=== PATIENT | male | born 1930 | race African-American/Black ===

== ENCOUNTER 2017-12-24 13:50 | Observation (INO) | payer OTHER ==
[2017-12-24 14:40] LABS: Absolute Lymphocytes (CBC) 1.2 K/uL (0.7-4.9); Absolute Monocytes 0.7 K/uL (0.1-1.3); Absolute Neutrophil 3.7 K/uL (1.8-8.0); Basophils % 0.8 % (0-1.3); Eosinophils % 4.6 % (0-4.4); Hematocrit 38.6 % (39.6-49.0); Lymphocytes % 20.8 % (15.3-44.8); MCH 31.9 pg (27.0-35.0); MCV 98.7 fL (80-100); MPV 8.4 fL (7.6-11.3); Monocytes % 11.1 % (3.3-12.3); RBC Red Blood Cell Count 3.91 M/uL (4.33-5.43)
--- NOTE | 2017-12-24 14:41 | RAD REPORT ---
EXAM DESCRIPTION: RAD - Chest Single View - 12/24/2017 2:33 pm CLINICAL HISTORY: CHEST PAIN Chest pain. COMPARISON: CHEST PA AND LAT 2 VIEW dated 02/01/2014; CHEST SINGLE VIEW dated 01/16/2014; CHEST PA AND LAT 2 VIEW dated 10/18/2012; CHEST SINGLE VIEW dated 06/01/2011 FINDINGS: Portable technique limits examination quality. The lungs are grossly clear. The heart is upper limit of normal in size. No displaced fractures. IMPRESSION: No acute intrathoracic process suspected.
[2017-12-24 14:57] LABS: CKMB Creatine Kinase MB 2.1 ng/mL (0.3-3.6); Potassium 3.3 mmol/L (3.5-5.1)
--- NOTE | 2017-12-24 15:23 | ER ---
Nurse's Notes [facility] Name: Clemente Nieto Age: 87 yrs Sex: Male : 1930 Arrival Date: 12/24/2017 Time: 13:51 Bed 6 Private MD: Andrei Bains T Diagnosis: Chest pain, unspecified Presentation: 12/24 13:52 Presenting complaint: Patient states: Left sided CP, that started yesterday, non sg radiating, described as sharp stabbing pain and pressure, denies N/V/D, denies weakness/dizziness at this time, pt denies SOB, reports this pain to be similar to his CP he had a couple years ago and was admitted. Transition of care: patient was not received from another setting of care. Onset of symptoms was December 24, 2017. Risk Assessment: Do you want to hurt yourself or someone else? Patient reports no desire to harm self or others. Initial Sepsis Screen: Does the patient meet any 2 criteria? No. Patient's initial sepsis screen is negative. Does the patient have a suspected source of infection? No. Patient's initial sepsis screen is negative. Care prior to arrival: None. 13:52 Method Of Arrival: Ambulatory sg 13:52 Acuity: JORGE 3 sg Historical: - Allergies: 13:52 No Known Allergies; sg - Home Meds: 13:52 carvedilol 6.25 mg Oral tab 1 tab 2 times per day [Active]; sg lisinopril-hydrochlorothiazide 10-12.5 mg Oral tab 1 tab once daily [Active]; simvastatin 20 mg Oral tab 1 tab once daily [Active]; 14:11 Nexium 40 mg Oral cpDR 1 cap once daily [Active]; Combivent 18-103 mcg/actuation Inhl hb aero [Active]; aspirin 325 mg Oral tab 1 tab once daily [Active]; nitroglycerin 0.4 mg SL subl [Active]; isosorbide mononitrate 30 mg Oral Tb24 1 tab once daily [Active]; - PMHx: 13:52 Hypertension; Stomach Ulcers; sg - PSHx: 13:52 None; sg - Immunization history:: Adult Immunizations up to date. - Social history:: Smoking status: Patient/guardian denies using tobacco. - Ebola Screening: : Patient negative for fever greater than or equal to 101.5 degrees Fahrenheit, and additional compatible Ebola Virus Disease symptoms Patient denies exposure to infectious person Patient denies travel to an Ebola-affected area in the 21 days before illness onset No symptoms or risks identified at this time. - Family history:: not pertinent. - Hospitalizations: : No recent hospitalization is reported. Screenin:09 Abuse screen: Denies threats or abuse. Denies injuries from another. Nutritional hb screening: No deficits noted. Tuberculosis screening: No symptoms or risk factors identified. Fall Risk None identified. Assessment: 14:12 General: Appears in no apparent distress. Behavior is calm, cooperative. Pain: Pain hb currently is 5 out of 10 on a pain scale. Neuro: Level of Consciousness is awake, alert, obeys commands, Oriented to person, place, time, situation. Cardiovascular: Reports chest pain, Heart tones S1 S2 present Capillary refill < 3 seconds Patient's skin is warm and dry. Respiratory: Airway is patent Trachea midline Respiratory effort is even, unlabored, Respiratory pattern is regular, symmetrical, Breath sounds are clear bilaterally. GI: No signs and/or symptoms were reported involving the gastrointestinal system. : No signs and/or symptoms were reported regarding the genitourinary system. EENT: No signs and/or symptoms were reported regarding the EENT system. Derm: No signs and/or symptoms reported regarding the dermatologic system. Skin is intact, is healthy with good turgor. Musculoskeletal: No signs and/or symptoms reported regarding the musculoskeletal system. Vital Signs: 14:01 BP 141 / 64; Pulse 47 MON; Resp 19 S; Temp 98.0(TE); Pulse Ox 100% on R/A; Weight 82.55 sg kg; Height 6 ft. 1 in. (185.42 cm); Pain 7/10; 14:55 BP 147 / 61; Pulse 48; Resp 18; Pulse Ox 100% on R/A; dh3 16:06 BP 122 / 73; Pulse 45; Resp 18; Pulse Ox 100% ; sv 14:01 Body Mass Index 24.01 (82.55 kg, 185.42 cm) ED Course: 13:51 Patient arrived in ED. sb2 13:51 Andrei Bains MD is Private Physician. sb2 13:52 Arm band placed on. sg 14:01 Deisy Hernández, MG is Primary Nurse. hb 14:01 Triage completed. sg 14:06 Shipman, Tio, MD is Attending Physician. rn 14:09 Inserted saline lock: 20 gauge in right antecubital area, using aseptic technique. hb Blood collected. 14:11 EKG done, by submarine cable equipment technician. reviewed by Tio Shipman MD. 3 14:27 EKG done, by submarine cable equipment technician. reviewed by Tio Shipman MD. 3 14:30 Patient has correct armband on for positive identification. Placed in gown. Bed in low hb position. Call light in reach. Side rails up X 1. 14:33 XRAY Chest (1 view) In Process Unspecified. EDMS 15:22 Chace Paris DO is Hospitalizing Provider. rn 16:30 No provider procedures requiring assistance completed. Patient admitted, IV remains in hb place. Administered Medications: No medications were administered Outcome: 15:22 Decision to Hospitalize by Provider. rn 16:30 Admitted to Med/surg accompanied by tech, via wheelchair, room 214. hb 16:30 Condition: stable 16:30 Instructed on the need for admit, Demonstrated understanding of instructions. 16:39 Patient left the ED. sv Signatures: Dispatcher [employer] EDMS Katja Helm RN MG Isaias Ramos RN RN Tio Shipman MD MD rn Baxter, Heather, RN RN Stacia Thompson 3 Caity Herrera 2 Carolina Echevarria 3
--- NOTE | 2017-12-24 15:23 | EDPHYS ---
Physician Documentation [facility] Name: Clemente Nieto Age: 87 yrs Sex: Male : 1930 Arrival Date: 12/24/2017 Time: 13:51 Bed 6 Private MD: Andrei Bains T ED Physician Tio Shipman HPI: 12/24 15:13 This 87 yrs old Black Male presents to ER via Ambulatory with complaints of Chest Pain rn > 30 y/o. 15:13 The patient or guardian reports chest pain that is located primarily in the anterior rn chest wall, left. Onset: last night. The pain radiates to the left arm. Associated signs and symptoms: The patient has no apparent associated signs or symptoms. The chest pain is described as aching, sharp. Duration: The patient or guardian reports multiple episodes, that are intermittent. Modifying factors: The symptoms are alleviated by NTG, X1. the symptoms are aggravated by nothing. Severity of pain: At its worst the pain was moderate in the emergency department the pain is unchanged. The patient has experienced similar episodes in the past. The patient has not recently seen a physician. Reports chest pain, intermittent since last night, radiates to left arm, improved with nitro x 1, similar symptoms in past with unclear etiology. States neg stress test a few years ago. No cough/sob. . Historical: - Allergies: 13:52 No Known Allergies; sg - Home Meds: 13:52 carvedilol 6.25 mg Oral tab 1 tab 2 times per day [Active]; sg lisinopril-hydrochlorothiazide 10-12.5 mg Oral tab 1 tab once daily [Active]; simvastatin 20 mg Oral tab 1 tab once daily [Active]; 14:11 Nexium 40 mg Oral cpDR 1 cap once daily [Active]; Combivent 18-103 mcg/actuation Inhl hb aero [Active]; aspirin 325 mg Oral tab 1 tab once daily [Active]; nitroglycerin 0.4 mg SL subl [Active]; isosorbide mononitrate 30 mg Oral Tb24 1 tab once daily [Active]; - PMHx: 13:52 Hypertension; Stomach Ulcers; sg - PSHx: 13:52 None; sg - Immunization history:: Adult Immunizations up to date. - Social history:: Smoking status: Patient/guardian denies using tobacco. - Ebola Screening: : Patient negative for fever greater than or equal to 101.5 degrees Fahrenheit, and additional compatible Ebola Virus Disease symptoms Patient denies exposure to infectious person Patient denies travel to an Ebola-affected area in the 21 days before illness onset No symptoms or risks identified at this time. - Family history:: not pertinent. - Hospitalizations: : No recent hospitalization is reported. ROS: 15:13 Constitutional: Negative for fever, chills, and weight loss, Eyes: Negative for injury, rn pain, redness, and discharge, Neck: Negative for injury, pain, and swelling, Cardiovascular: Negative for palpitations, and edema, Respiratory: Negative for shortness of breath, cough, wheezing, and pleuritic chest pain, Abdomen/GI: Negative for abdominal pain, nausea, vomiting, diarrhea, and constipation, MS/Extremity: Negative for injury and deformity, Skin: Negative for injury, rash, and discoloration, Neuro: Negative for headache, weakness, numbness, tingling, and seizure. Exam: 15:13 Constitutional: This is a well developed, well nourished patient who is awake, alert, rn and in no acute distress. Head/Face: Normocephalic, atraumatic. Eyes: Pupils equal round and reactive to light, extra-ocular motions intact. Lids and lashes normal. Conjunctiva and sclera are non-icteric and not injected. Cornea within normal limits. Periorbital areas with no swelling, redness, or edema. Neck: Trachea midline, no thyromegaly or masses palpated, and no cervical lymphadenopathy. Supple, full range of motion without nuchal rigidity, or vertebral point tenderness. No Meningismus. Cardiovascular: + regular, bradycardic, no murmur Respiratory: Lungs have equal breath sounds bilaterally, clear to auscultation and percussion. No rales, rhonchi or wheezes noted. No increased work of breathing, no retractions or nasal flaring. Abdomen/GI: Soft, non-tender, with normal bowel sounds. No distension or tympany. No guarding or rebound. No evidence of tenderness throughout. MS/ Extremity: Pulses equal, no cyanosis. Neurovascular intact. Full, normal range of motion. Equal circumference. Neuro: Awake and alert, GCS 15, oriented to person, place, time, and situation. Cranial nerves II-XII grossly intact. Motor strength 5/5 in all extremities. Sensory grossly intact. Vital Signs: 14:01 BP 141 / 64; Pulse 47 MON; Resp 19 S; Temp 98.0(TE); Pulse Ox 100% on R/A; Weight 82.55 sg kg; Height 6 ft. 1 in. (185.42 cm); Pain 7/10; 14:55 BP 147 / 61; Pulse 48; Resp 18; Pulse Ox 100% on R/A; dh3 16:06 BP 122 / 73; Pulse 45; Resp 18; Pulse Ox 100% ; sv 14:01 Body Mass Index 24.01 (82.55 kg, 185.42 cm) sg MDM: 14:06 Patient medically screened. rn 14:31 ED course: ST elevation on ECG, only in lead V2, appears more j-point elevation, has rn inverted twaves inferior leads, chest pain almost resolved, pending troponin, anticipate admission for chest pain and ECG changes but not enough to call STEMI at this point. . 15:19 Differential diagnosis: acute myocardial infarction, acute pericarditis, anxiety, rn coronary artery disease costochondritis, gastroesophageal reflux disease (GERD), pericarditis, pleurisy, pneumothorax. The patient was given aspirin in the Emergency Department. 15:20 Data reviewed: vital signs, nurses notes, lab test result(s), EKG, radiologic studies, rn plain films, and as a result, I will admit patient. Counseling: I had a detailed discussion with the patient and/or guardian regarding: the historical points, exam findings, and any diagnostic results supporting the discharge/admit diagnosis, lab results, radiology results, the need for further work-up and treatment in the hospital. Response to treatment: the patient's symptoms have mildly improved after treatment, and as a result, I will admit patient. Admission orders: after a detailed discussion of the patient's condition and case, the admit orders are written by me. 12/24 14:14 Order name: Basic Metabolic Panel; Complete Time: 14:57 rn 12/24 14:14 Order name: CBC with Diff; Complete Time: 14:43 rn 12/24 14:14 Order name: Ckmb; Complete Time: 14:57 rn 12/24 14:14 Order name: CPK; Complete Time: 14:57 rn 12/24 14:14 Order name: NT PRO-BNP; Complete Time: 14:57 rn 12/24 14:14 Order name: Troponin (emerg Dept Use Only); Complete Time: 14:57 rn 12/24 15:44 Order name: Urinalysis EDMS 12/24 15:44 Order name: Basic Metabolic Panel EDMS 12/24 15:44 Order name: Basic Metabolic Panel EDMS 12/24 15:44 Order name: Basic Metabolic Panel EDMS 12/24 15:44 Order name: CBC with Automated Diff EDMS 12/24 15:44 Order name: CBC with Automated Diff EDMS 12/24 15:44 Order name: CBC with Automated Diff EDMS 12/24 15:44 Order name: CKMB Creatine Kinase MB EDMS 12/24 15:44 Order name: CKMB Creatine Kinase MB EDMS 12/24 15:44 Order name: CKMB Creatine Kinase MB EDMS 12/24 15:44 Order name: Creatine Phosphokinase EDMS 12/24 15:44 Order name: Creatine Phosphokinase EDMS 12/24 15:44 Order name: Creatine Phosphokinase EDDE 12/24 15:44 Order name: Lipid Profile EDMS 12/24 15:44 Order name: Lipid Profile EDMS 12/24 15:44 Order name: Magnesium EDMS 12/24 15:44 Order name: Magnesium EDMS 12/24 15:44 Order name: Magnesium EDMS 12/24 15:44 Order name: T4 Free EDMS 12/24 15:44 Order name: T4 Free EDDE 12/24 15:44 Order name: Troponin I EDDE 12/24 15:44 Order name: Troponin I EDDE 12/24 15:44 Order name: Troponin I EDDE 12/24 15:44 Order name: Thyroid Stimulating Hormone EDDE 12/24 14:14 Order name: XRAY Chest (1 view); Complete Time: 14:43 rn 12/24 14:14 Order name: EKG; Complete Time: 14:15 rn 12/24 14:14 Order name: Cardiac monitoring; Complete Time: 14:23 rn 12/24 14:14 Order name: EKG - Nurse/Tech; Complete Time: 14:23 rn 12/24 14:14 Order name: IV Saline Lock; Complete Time: 14:23 rn 12/24 14:14 Order name: Labs collected and sent; Complete Time: 14:23 rn 12/24 14:14 Order name: O2 Per Protocol; Complete Time: 14:23 rn 12/24 14:14 Order name: O2 Sat Monitoring; Complete Time: 14:23 rn 12/24 15:44 Order name: CONS Physician Consult EDDE 12/24 15:44 Order name: Heart Healthy EDMS 12/24 15:44 Order name: Echo with Doppler EDMS 12/24 15:44 Order name: Thyroid Stimulating Hormone EDMS Administered Medications: No medications were administered Disposition: 12/24/17 15:22 Hospitalization ordered by Chace Paris for Observation. Preliminary diagnosis is Chest pain, unspecified. - Bed requested for Telemetry/MedSurg (observation). - Status is Observation. sv - Condition is Stable. - Problem is new. - Symptoms have improved. UTI on Admission? No Signatures: Dispatcher [employer] EDDE Katja Helm RN Isaias Tena RN Tio Araujo MD MD rn Baxter, Heather RN Genesis Aviles RN RN df Corrections: (The following items were deleted from the chart) 14:33 14:31 ED course: ST elevation on ECG, only in lead V2, appears more j-point elevation, rn has inverted twaves inferior leads. rn 16:09 15:22 Hospitalization Ordered by Chace Paris DO for Observation. Preliminary df diagnosis is Chest pain, unspecified. Bed requested for Telemetry/MedSurg (observation). Status is Observation. Condition is Stable. Problem is new. Symptoms have improved. UTI on Admission? No. rn 16:39 16:09 12/24/2017 15:22 Hospitalization Ordered by Chace Paris DO for Observation. sv Preliminary diagnosis is Chest pain, unspecified. Bed requested for Telemetry/MedSurg (observation). Status is Observation. Condition is Stable. Problem is new. Symptoms have improved. UTI on Admission? No. df
[2017-12-24] MEDS ORDERED: ACETAMINOPHEN 500 MG TAB PO PRN (15:38)
[2017-12-24] MEDS ORDERED: ONDANSETRON 4 MG/2 ML VIAL IV PRN (15:38)
[2017-12-24] MEDS ORDERED: MORPHINE 4 MG/ML SYR IV PRN (15:38)
--- NOTE | 2017-12-24 15:49 | P.HP ---
Certification for Inpatient Patient admitted to: Observation With expected LOS: <2 Midnights Patient will require the following post-hospital care: None Practitioner: I am a practitioner with admitting privileges, knowledge of patient current condition, hospital course, and medical plan of care. Services: Services provided to patient in accordance with Admission requirements found in Title 42 Section 412.3 of the Code of Federal Regulations Patient History Date of Service: 12/24/17 Primary Care Provider: Dr. Bains; Cardiology-Dr. Medina([place], [place]) Reason for admission: Chest pain History of Present Illness: 87-year-old male presented emergency room with chest pain. Patient reports chest pain since yesterday. Chest pain mainly to the left side. No radiation was noted. He rated the pain about a 5/10. It was associated with some shortness of breath. He denied any headaches, nausea, or diaphoresis. Chest pain persisted today. He came to the emergency room for further evaluation. In the ER patient was evaluated. Blood pressure is slightly elevated. CBC unremarkable. Potassium slightly decreased at 3.3. CK-MB, troponin, BMP all within normal range. Chest x-ray unremarkable. No significant ST elevation noted. Due to the nature of the symptoms the patient was admitted for observation. When I saw the patient ER, he appeared comfortable. Chest pain improved. Patient was given nitroglycerin in the emergency room. 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 His last stress test was about 2 years ago. He recalled it being normal. Patient with history of hypertension, hyperlipidemia, and GERD. Patient takes multiple medications. Allergies No Known Allergies Allergy (Unverified 01/16/14 16:11) Home medications list reviewed: Yes Home Medications: Amlodipine [Norvasc*] 1 tab PO DAILY 01/16/14 Carvedilol [Coreg] 1 tab PO BID 01/16/14 Combivent Inhaler 1 puff IH DAILY 01/16/14 Esomeprazole Mag Trihydrate [Nexium] 1 tab PO DAILY 01/16/14 Lisinopril/Hydrochlorothiazide [Zestoretic 10-12.5 mg Tablet] 1 tab PO DAILY Simvastatin 1 tab PO BEDTIME 01/16/14 - Past Medical/Surgical History Diabetic: No -: HTN -: Hyperlipidemia -: GERD -: COPD -: CAD -: Former tobacco use Past Surgical History: Patient denies surgical history Psychosocial/ Personal History: The patient is a . He has 2 children. He lives by himself but his children take care of him. - Family History Family History: Reviewed- Non-Contributory - Social History Smoking Status: Former smoker Alcohol use: No CD- Drugs: No Caffeine use: Yes Place of Residence: Home Review of Systems General: Unremarkable Eyes: Unremarkable ENT: Unremarkable Respiratory: Shortness of Breath, As per HPI Cardiovascular: Chest Pain, As per HPI Gastrointestinal: Unremarkable Genitourinary: Unremarkable Musculoskeletal: Unremarkable Integumentary: Unremarkable Neurological: Unremarkable Lymphatics: Unremarkable Physical Examination - Physical Exam General: Alert, In no apparent distress, Oriented x3, Cooperative HEENT: Atraumatic, Normocephalic, PERRLA, Mucous membr. moist/pink Neck: Supple, No Thyromegaly Respiratory: Clear to auscultation bilaterally, Normal air movement Cardiovascular: Normal pulses, Regular rate/rhythm Gastrointestinal: Normal bowel sounds, Soft and benign, Non-distended, No ascites, No tenderness, No masses, No rebound, No guarding Musculoskeletal: No contractures, No erythema, No tenderness, No warmth Integumentary: No tenderness/swelling, No erythema, No warmth, No cyanosis Neurological: Normal speech, Normal strength at 5/5 x4 extr, Normal tone, Normal affect Lymphatics: No axilla or inguinal lymphadenopathy - Studies Laboratory Data (last 24 hrs) 12/24/17 14:06: WBC 5.9, Hgb 12.5 L, Hct 38.6 L, Plt Count 177 12/24/17 14:06: Sodium 144, Potassium 3.3 L, BUN 11, Creatinine 1.20, Glucose 67 L Assessment and Plan - Problems (Diagnosis) (1) Hypertension Current Visit: Yes Status: Chronic Plan: Will continue with carvedilol. Will discontinue lisinopril hydrochlorothiazide due to hypokalemia. Will start with lisinopril only. Will monitor and adjust medications appropriately. Patient admitted for observation. Will check echocardiogram. Will monitor cardiac enzymes. Cardiology consulted to further assess. Qualifiers: Hypertension type: essential hypertension Qualified Code(s): I10 - Essential (primary) hypertension (2) Hyperlipidemia Current Visit: Yes Status: Chronic Plan: Will check fasting lipid panel. Will continue with statin medication. (3) GERD (gastroesophageal reflux disease) Current Visit: Yes Status: Chronic Plan: Will start PPI. Qualifiers: Esophagitis presence: esophagitis presence not specified Qualified Code(s) : K21.9 - Gastro-esophageal reflux disease without esophagitis (4) CAD (coronary artery disease) Current Visit: Yes Status: Chronic Plan: Patient takes Imdur. Will restart. Will continue evaluation or chest pain. He reports last stress test done 2 years ago with his set up mechanic stamping machines. He recalls it being normal. Echocardiogram pending. Cardiology consulted. Qualifiers: Coronary Disease-Associated Artery/Lesion type: unspecified vessel or lesion type Associated angina: with unstable angina (5) Hypokalemia Current Visit: Yes Status: Acute Plan: Will monitor and replace appropriately. Replacement protocol in place. (6) Chest pain Current Visit: No Status: Acute Plan: Will monitor cardiac enzymes. Will place on aspirin, Lovenox for DVT prophylaxis, statin medication. Will provide medication for chest pain. Will order echocardiogram. His last stress tests done 2 years ago which was normal. Will consult cardiology. Qualifiers: Ischemic chest pain type: unstable angina pectoris Discharge Plan: Home Plan to discharge in: 24 Hours - Advance Directives Does patient have a Living Will: Yes Does patient have a Durable POA for Healthcare: No - Code Status/Comfort Care Code Status Assessed: Yes Time Spent Managing Pts Care (In Minutes): 55
[2017-12-24] MEDS ORDERED: NITROGLYCERIN 0.4 MG/TAB SL PRN (16:04)
--- NOTE | 2017-12-24 17:24 | EKG ---
Test Date: 2017-12-24 Test Time: 14:04:31 Pensions Ret[employer] Plan Specialist: BRADLEY MEASUREMENT RESULTS: Intervals: Rate: 46 NM: 152 QRSD: 94 QT: 488 QTc: 427 Union: P: 62 NM: 152 QRS: -20 T: -29 INTERPRETIVE STATEMENTS: Marked sinus bradycardia Early repolarization abnormality Abnormal ECG Compared to ECG 01/17/2014 07:18:05 no significant change from previous ECG Electronically Signed On 12-24-17 17:24:10 CDT by Kamron Sousa
[2017-12-24] MEDS ORDERED: IPRATROPIUM BROM 0.5MG/2.5ML NEB PRN (17:26)
[2017-12-24] MEDS ORDERED: ALBUTEROL 2.5 MG/3 ML NEB SOL NEB PRN (17:26)
[2017-12-24] MEDS: PANTOPRAZOLE 40MG TABLET PO SCH (17:48)
[2017-12-24] MEDS: ENOXAPARIN 40 MG/0.4 ML SQ SCH (17:48)
[2017-12-24 18:59] VITALS: BMI 24.0
[2017-12-24] MEDS ORDERED: POTASSIUM 25 MEQ EFFERV TAB PO ONE (19:00)
[2017-12-24 20:46] LABS: Urine Appearance CLEAR; Urine Bilirubin NEGATIVE (NEG); Urine Blood NEGATIVE (NEG); Urine Color DK YELLOW; Urine Glucose NEGATIVE (NEG); Urine Protein 1+ (NEG); Urine Specific Gravity >=1.030 (1.005-1.030)
[2017-12-24 20:51] LABS: Urine Microscopic Reflex ORDER UMIC
[2017-12-24] MEDS ORDERED: ATORVASTATIN 10 MG TAB PO SCH (21:00)
[2017-12-24] MEDS ORDERED: LISINOPRIL 10 MG TAB PO SCH (21:00)
[2017-12-24 21:22] LABS: Calcium Oxalate Crystals- Ur MODERATE (NONE SEEN); Urine Bacteria <20 /HPF (NONE SEEN); Urine Culture Reflex Order NOT NEEDED; Urine Mucus SLIGHT /HPF (NONE SEEN); Urine RBC <5 /HPF (NONE SEEN)
[2017-12-24] MEDS: CARVEDILOL 6.25 MG TAB PO SCH (21:30)
--- NOTE | 2017-12-24 22:45 | CON ---
Chief Complaint: Pain in the chest and left shoulder area. History Of Present Illness: Mr. Nieto has had chest pain like this for several years. Four years ago he was hospitalized for similar complaint. Then a nuclear stress test and echo were normal. Reg etime in the past 4 year, Dr. Medina put a stent in him, but apparently it made a little difference in the chest pain. His chest pain is intermittent. There are some days when it is worse, some days wh en it is better, does not seem to be related to exertion. It is intermittent, not related to meals, mostly left shoulder, sometimes enter the chest, sometimes the left arm. The patient has hypertensio n and dyslipidemia. He does not have diabetes. He does not use tobacco. No illegal drugs. Physical Examination: Vital Signs: 6 feet 1 inch tall, 182 pounds. HEENT: Normal. Lungs: Clear. Heart: Exam is within normal limits. There is no carotid bruit. Abdomen: Soft, aortic size seems to be normal on palpation. Extremities: No cyanosis, clubbing, or edema. Distal pulses are palpable. An EKG does not show infarction, injury, or ischemia. Cardiac enzymes are normal. His other blood tests are rather unremarkable. There is mild anemia, hemoglobin 12.5, normal platele t count and white blood cell count, creatinine 1.2, GFR 70, N-terminal proBNP is 280, which is within normal limits. Plan: I think if we have a 3 sets of normal enzymes, the patient probably could be allowed to go, an d do an outpatient stress test again or return to the care of Dr. Medina. We can keep him as long as Dr. Paris wishes to workup other noncardiac causes of chest pain, but I think this is noncardiac. H carmen does not have an elevated temperature. Some of his family members were concerned that he might hav e gotten heat stroke, but he does not have an elevated temperature, so that seems unlikely. His hear t rate is rather slow, bradycardic, and I do not think he would meet criteria for a pacemaker at [facility] at this point. Thank you very much for your kind referral of Mr. Nieto. I will follow him with you. MARIELA/BOYL Voice ID: [id number] Report ID: [id number]
--- NOTE | 2017-12-24 23:01 | EKG ---
Test Date: 2017-12-24 Test Time: 14:19:07 Typesetting Machine Operator/Tender: BRADLEY MEASUREMENT RESULTS: Intervals: Rate: 45 UT: 150 QRSD: 92 QT: 488 QTc: 422 [place]: P: 74 UT: 150 QRS: -19 T: -37 INTERPRETIVE STATEMENTS: Sinus bradycardia Early repolarization Abnormal ECG Compared to ECG 12/24/2017 14:04:31 no significant change from previous ECG Electronically Signed On 12-24-17 23:01:31 CDT by Kamron Sousa
--- NOTE | 2017-12-24 23:01 | EKG ---
Test Date: 2017-12-24 Test Time: 14:19:37 Systems Analyst: BRADLEY MEASUREMENT RESULTS: Intervals: Rate: 47 GA: 146 QRSD: 92 QT: 484 QTc: 428 [place]: P: 68 GA: 146 QRS: -23 T: -38 INTERPRETIVE STATEMENTS: Sinus bradycardia Early repolarization Abnormal ECG Compared to ECG 12/24/2017 14:19:07 No significant changes Electronically Signed On 12-24-17 23:00:58 CDT by Kamron Sousa
[2017-12-25 00:45] LABS: CKMB Creatine Kinase MB 1.9 ng/mL (0.3-3.6)
[2017-12-25] MEDS ORDERED: POTASSIUM CL SA 10 MEQ TAB PO ONE ×2 (00:56→06:06)
[2017-12-25 05:10] VITALS: O2SAT 97
[2017-12-25 05:26] LABS: Absolute Lymphocytes (CBC) 1.1 K/uL (0.7-4.9); Absolute Monocytes 0.5 K/uL (0.1-1.3); Absolute Neutrophil 2.6 K/uL (1.8-8.0); Basophils % 0.5 % (0-1.3); Eosinophils % 6.2 % (0-4.4); Hematocrit 35.3 % (39.6-49.0); Lymphocytes % 24.9 % (15.3-44.8); MCH 33.8 pg (27.0-35.0); MCV 97.2 fL (80-100); MPV 8.2 fL (7.6-11.3); Monocytes % 10.5 % (3.3-12.3); RBC Red Blood Cell Count 3.63 M/uL (4.33-5.43)
[2017-12-25 05:53] LABS: Magnesium 1.8 mg/dL (1.8-2.4); Potassium 3.8 mmol/L (3.5-5.1); Thyroid Stimulating Hormone 1.82 uIU/mL (0.36-3.74)
[2017-12-25] MEDS ORDERED: MAGNESIUM SULFATE 1 gm IVPB 1 GM/100 ML BAG IV ONE (06:05)
[2017-12-25 07:51] LABS: CKMB Creatine Kinase MB 1.6 ng/mL (0.3-3.6)
[2017-12-25] MEDS: CARVEDILOL 6.25 MG TAB PO SCH (08:39)
[2017-12-25] MEDS: ENOXAPARIN 40 MG/0.4 ML SQ SCH (08:39)
[2017-12-25] MEDS: PANTOPRAZOLE 40MG TABLET PO SCH (08:39)
[2017-12-25] MEDS ORDERED: ASPIRIN EC 81 MG TAB PO SCH (09:00)
[2017-12-25] MEDS ORDERED: ISOSORBIDE MONO SR 30 MG TAB PO SCH (09:00)
--- NOTE | 2017-12-25 10:18 | P.DS ---
Admission Date: 12/24/17 Discharge Date: 12/25/17 Primary Care Provider: Dr. Bains; Cardiology-Dr. Medina([place], [place]) Disposition: ROUTINE DISCHARGE Discharge Condition: GOOD Reason for Admission: Chest pain Consultations: Cardiology-Dr. Sousa - Problems (1) Hypertension Current Visit: Yes Status: Chronic Qualifiers: Hypertension type: essential hypertension Qualified Code(s): I10 - Essential (primary) hypertension (2) Hyperlipidemia Current Visit: Yes Status: Chronic (3) GERD (gastroesophageal reflux disease) Current Visit: Yes Status: Chronic Qualifiers: Esophagitis presence: esophagitis presence not specified Qualified Code(s) : K21.9 - Gastro-esophageal reflux disease without esophagitis (4) CAD (coronary artery disease) Current Visit: Yes Status: Chronic Qualifiers: Coronary Disease-Associated Artery/Lesion type: unspecified vessel or lesion type Associated angina: with unstable angina (5) Hypokalemia Current Visit: Yes Status: Acute (6) Chest pain Current Visit: No Status: Acute Qualifiers: Ischemic chest pain type: unstable angina pectoris Brief History of Present Illness: 87-year-old male presented emergency room with chest pain. Patient reports chest pain since yesterday. Chest pain mainly to the left side. No radiation was noted. He rated the pain about a 5/10. It was associated with some shortness of breath. He denied any headaches, nausea, or diaphoresis. Chest pain persisted today. He came to the emergency room for further evaluation. In the ER patient was evaluated. Blood pressure is slightly elevated. CBC unremarkable. Potassium slightly decreased at 3.3. CK-MB, troponin, BMP all within normal range. Chest x-ray unremarkable. No significant ST elevation noted. Due to the nature of the symptoms the patient was admitted for observation. When I saw the patient ER, he appeared comfortable. Chest pain improved. Patient was given nitroglycerin in the emergency room. 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 His last stress test was about 2 years ago. He recalled it being normal. Patient with history of hypertension, hyperlipidemia, and GERD. Patient takes multiple medications. Hospital Course: The patient did well during the course of his stay. Chest pain resolved. Patient was evaluated by cardiology. Cardiology suspects noncardiac chest pain. Cardiac enzymes unremarkable. Patient will be discharged home. Recommendation is for the patient to follow up with cardiology within 1 week as an outpatient. Patient may require outpatient cardiac evaluation. Patient may continue with his current medications. Patient to continue with aspirin 325 mg daily. Patient has hypertension. Patient will continue with his medications including carvedilol 3.125 mg 1 pill twice daily and lisinopril 10 mg 1 pill once daily. Recommendation is to maintain blood pressures less 150/80. Further adjustment can be done by his PCP. Patient has hyperlipidemia. Patient continue with Zocor 20 mg once daily. Patient takes Imdur daily. Patient will continue with his medication. Patient will need a follow up with cardiology in outpatient to further address. Patient takes Combivent as needed. Patient with history of tobacco use in the past. Recommendation is to use Combivent as needed. If he is using Combivent more regularly the patient may require pulmonary evaluation for the possible need of Advair or Symbicort. This can be further addressed as an outpatient. Vital Signs/Physical Exam: Temp Pulse Resp BP Pulse Ox 97.3 F 50 20 161/73 H 99 12/25/17 08:00 12/25/17 08:00 12/25/17 08:00 12/25/17 08:00 12/25/17 08:00 General: Alert, In no apparent distress, Oriented x3, Cooperative HEENT: Atraumatic, Mucous membr. moist/pink Neck: Supple Respiratory: Clear to auscultation bilaterally, Normal air movement Cardiovascular: Normal pulses, Regular rate/rhythm Gastrointestinal: Normal bowel sounds, Soft and benign, Non-distended, No tenderness, No masses, No rebound, No guarding Musculoskeletal: No erythema, No tenderness, No warmth Integumentary: No tenderness/swelling, No erythema, No warmth, No cyanosis Neurological: Normal speech, Normal strength at 5/5 x4 extr, Normal tone, Normal affect Lymphatics: No axilla or inguinal lymphadenopathy Laboratory Data at Discharge: WBC 4.5 K/uL (4.3-10.9) D 12/25/17 04:52 Hgb 12.3 g/dL (13.6-17.9) L 12/25/17 04:52 Hct 35.3 % (39.6-49.0) L 12/25/17 04:52 Plt Count 152 K/uL (152-406) 12/25/17 04:52 Sodium 144 mmol/L (136-145) 12/25/17 04:52 Potassium 3.8 mmol/L (3.5-5.1) 12/25/17 04:52 BUN 11 mg/dL (7-18) 12/25/17 04:52 Creatinine 1.10 mg/dL (0.55-1.3) 12/25/17 04:52 Glucose 97 mg/dL (74-106) 12/25/17 04:52 Magnesium 1.8 mg/dL (1.8-2.4) 12/25/17 04:52 Troponin I < 0.02 ng/mL (0.0-0.045) 12/25/17 07:07 Triglycerides 124 mg/dL (<150) 12/25/17 04:52 Cholesterol 101 mg/dL (<200) 12/25/17 04:52 HDL Cholesterol 35 mg/dL (40-60) L 12/25/17 04:52 Cholesterol/HDL Ratio 2.89 12/25/17 04:52 Home Medications: Carvedilol [Coreg] 1 tab PO BID 01/16/14 Combivent Inhaler 2 puff IH DAILY 01/16/14 Esomeprazole Mag Trihydrate [Nexium] 1 tab PO DAILY 01/16/14 Simvastatin 1 tab PO BEDTIME 01/16/14 Aspirin [Aspirin EC 325 MG] 325 mg PO 12/24/17 Isosorbide Mononitrate [Isosorbide Mononitrate ER] 1 tab PO DAILY 12/24/17 Nitroglycerin 0.4 mg SL Q5MX3, Q15MX1, Q30M PRN 12/24/17 Patient Discharge Instructions: 1. Patient will need a follow up with PCP in 1 week to follow up this hospitalization. 2. Patient presented with chest pain. This resolved. Patient seen by Cardiology. Cardiology suspects this is noncardiac. Cardiac enzymes x3 negative. Recommendations for the patient follow up with his social and human services assistant within 1 week. Patient may require outpatient cardiac evaluation. Patient may continue with aspirin daily. Patient takes Imdur. This can be continued. 3. Patient has hypertension. This remained stable. Patient will continue with his medications carvedilol 3.125 mg 1 pill twice daily and lisinopril 10 mg 1 pill once daily. Recommendation is to maintain blood pressures less 150/80. Further adjustment can be done by his PCP. 4. Patient has hyperlipidemia. Patient will continue with Zocor 20 mg 1 pill once daily. 5. Patient may take Tylenol as needed for pain. Diet: AHA Activity: Ad shadi Time spent managing pt's care (in minutes): 55
--- NOTE | 2017-12-25 13:52 | PN ---
Mr. Nieto is free of any chest pain. Enzymes are normal. EKG abnormal, but consistent with early repolarization. He is not an acute coronary syndrome patient. I recommend he be discharged and foll ow up with Dr. Medina. MARIELA/FRANKLIN Voice ID: [id number] Report ID: [id number]
[2017-12-25 16:27] VITALS: BP 154/71; TEMP 97.7
[2017-12-25] MEDS ORDERED: LISINOPRIL 20 MG TAB PO SCH (21:00)
== END 2017-12-25 16:08 | disposition home or self-care (01) ==
LOC: ER 13:50 → ERHOLD 15:38 → INTOOBSV 15:38 → 2ND 16:31
PROVIDERS: ADMIT Family Medicine; ATTEND Family Medicine
DX: R07.9 Chest pain, unspecified (principal); I25.110 Atherosclerotic heart disease of native coronary artery with unstable angina pectoris; R00.1 Bradycardia, unspecified; I10 Essential (primary) hypertension; E78.5 Hyperlipidemia, unspecified; K21.9 Gastro-esophageal reflux disease without esophagitis; E87.6 Hypokalemia
CPT/HCPCS: 36415; 71045; 80048 ×2; 80061; 82550 ×3; 82553 ×3; 83735; 83880; 84132; 84439; 84443; 84484 ×3; 85025 ×2; 93005 ×3; 99285; G0378 ×2; J1650 ×2; J3475; 81003; 81015